=== PATIENT | female | born 1965 | race Caucasian/White ===

== ENCOUNTER 2018-07-14 16:07 | Observation (INO) ==
[2018-07-14 16:56] LABS: Basophils # 0.1 10*3/uL (0.0-0.2); Basophils % 0.8 % (0.0-0.8); Eosinophils # 0.3 10*3/uL (0.0-0.87); Eosinophils % 2.6 % (0.00-10.9); Hematocrit 44.4 VOL% (35.7-47.0); Hemoglobin 13.9 GM/DL (12.0-16.0); Immature Granulocytes % 0.4 %; Immature Granulocytes Absolute 0.04 #; Lymphocytes # 4.5 10*3/uL (1.4-4.0); Lymphocytes % 41.3 % (21.3-54.2); Mean Corpuscular HGB Conc 31.3 GM/DL (32-36); Mean Corpuscular Hemoglobin 27 PG (27-34); Mean Corpuscular Volume 85.5 FL (87-102); Mean Platelet Volume 11.1 FL (9.6-12.0); Monocytes # 0.8 10*3/uL (0.11-0.8); Monocytes % 7.2 % (1.7-12.7); Neutrophils # 5.2 10*3/uL (1.4-7.4); Neutrophils % 47.7 % (38.7-73.9); Platelet Count 211 T/CUMM (130-400); Red Blood Count 5.19 MC/CUMM (3.8-5.5); Red Cell Distribution Width 15.4 % (9.3-17.3); White Blood Count 10.9 T/CUMM (4-12)
[2018-07-14 17:02] LABS: INR 0.9; PT Patient Result 9.9 SECS
[2018-07-14 17:13] LABS: Alanine Aminotransferase 25 U/L (13-56); Albumin 3.7 G/DL (3.4-5.0); Alkaline Phosphatase 148 U/L (45-117); Aspartate Amino Transferase 23 U/L (0-37); Blood Urea Nitrogen 12 MG/DL (7-18); Calcium 8.7 MG/DL (8.5-10.1); Glucose 87 MG/DL (74-106); Osmolality,Calculated 279.3 MOS/KG (273-304); Potassium 3.7 MMOL/L (3.5-5.1); Sodium 141 MMOL/L (136-145); Total Protein 7.4 G/DL (6.4-8.3); Troponin I < 0.015 NG/ML (0.00-0.045)
[2018-07-14] MEDS ORDERED: ASPIRIN 325 MG TABLET PO STA (18:16)
[2018-07-14] MEDS ORDERED: MORPHINE 4 MG/1 ML VIAL IV STA (18:16)
[2018-07-14] MEDS ORDERED: ONDANSETRON 4 MG/2 ML VIAL IV STA (18:16)
[2018-07-14] MEDS ORDERED: ENOXAPARIN 100 MG/ML SYRINGE SUBCUT STA (18:16)
[2018-07-14] MEDS ORDERED: NITROGLYCERIN 2% OINT 1 INCH/GM PACK TOP STA (18:16)
[2018-07-14] MEDS ORDERED: MORPHINE 4 MG/1 ML VIAL IV PRN (18:48)
[2018-07-14] MEDS ORDERED: ACETAMINOPHEN 325 MG TABLET PO PRN (18:48)
[2018-07-14] MEDS ORDERED: ONDANSETRON 4 MG/2 ML VIAL IV PRN (18:48)
[2018-07-14] MEDS ORDERED: PRAMIPEXOLE 1 MG TABLET PO SCH (21:00)
[2018-07-15 04:17] LABS: Basophils # 0.1 10*3/uL (0.0-0.2); Basophils % 0.6 % (0.0-0.8); Eosinophils # 0.3 10*3/uL (0.0-0.87); Hemoglobin 13.1 GM/DL (12.0-16.0); Immature Granulocytes % 0.4 %; Immature Granulocytes Absolute 0.04 #; Lymphocytes # 3.6 10*3/uL (1.4-4.0); Lymphocytes % 38.9 % (21.3-54.2); Mean Corpuscular HGB Conc 30.5 GM/DL (32-36); Mean Corpuscular Hemoglobin 27 PG (27-34); Mean Corpuscular Volume 87.6 FL (87-102); Mean Platelet Volume 10.5 FL (9.6-12.0); Monocytes # 0.6 10*3/uL (0.11-0.8); Monocytes % 6.9 % (1.7-12.7); Neutrophils # 4.7 10*3/uL (1.4-7.4); Neutrophils % 50.2 % (38.7-73.9); Platelet Count 186 T/CUMM (130-400); Red Blood Count 4.91 MC/CUMM (3.8-5.5); Red Cell Distribution Width 15.5 % (9.3-17.3); White Blood Count 9.3 T/CUMM (4-12)
[2018-07-15 04:43] LABS: Osmolality,Calculated 282.1 MOS/KG (273-304); Potassium 4.3 MMOL/L (3.5-5.1); Risk Ratio 3.43; VLDL CHOLESTEROL 23.4 MG/DL
[2018-07-15] MEDS ORDERED: LEVOTHYROXINE 100 MCG TABLET PO SCH (06:30)
[2018-07-15] MEDS ORDERED: ATORVASTATIN 40 MG TABLET PO SCH (09:00)
[2018-07-15] MEDS ORDERED: PANTOPRAZOLE 40 MG TABLET PO SCH (09:00)
[2018-07-15] MEDS ORDERED: NICOTINE 14 MG/24 HR PATCH TRANSDERM SCH (09:00)
[2018-07-15] MEDS ORDERED: BISOPROLOL/HCTZ 5-6.25 MG TABLET PO SCH (09:00)
[2018-07-15] MEDS ORDERED: BISOPROLOL 5 MG TABLET PO SCH (09:30)
[2018-07-15] MEDS: hydroCHLOROthiazide 25 MG TABLET PO SCH ×2 (09:34→09:37)
[2018-07-15 11:42] VITALS: BP 154/86
[2018-07-15] MEDS ORDERED: NITROGLYCERIN SL 0.4 MG TABLET SL PRN (13:51)
[2018-07-15] MEDS ORDERED: ENOXAPARIN 40 MG/0.4 ML SYRINGE SUBCUT SCH (21:00)
[2018-07-16] MEDS ORDERED: ASPIRIN EC 81 MG TABLET PO SCH (09:00)
== END 2018-07-15 15:45 | disposition home or self-care (01) ==
LOC: N.ED 16:07 → N.EDINP 16:07 → N.TELES 07-15 08:36
PROVIDERS: ADMIT Emergency Medicine; ATTEND Emergency Medicine